=== PATIENT | male | born 1980 | race African-American/Black ===

== ENCOUNTER 2019-04-23 22:58 | Emergency (ER) | payer BC ==
[2019-04-23] MEDS ORDERED: Lidocaine 1% PF 5 ML VIAL ONE (23:35)
[2019-04-23] MEDS ORDERED: cefTRIAXone\\ROCEPHIN 250 MG VIAL ONE (23:35)
[2019-04-23] MEDS ORDERED: Azithromycin 250 MG TAB ONE (23:35)
== END 2019-04-23 23:55 | disposition home or self-care (01) ==
LOC: SCSER 22:58
DX: Z20.2 Contact with and (suspected) exposure to infections with a predominantly sexual mode of transmission (principal)
CPT/HCPCS: 96372; 99283; J0696; J2001

== ENCOUNTER 2024-02-06 07:38 | Emergency (ER) | payer BC, SELFPAY ==
[2024-02-06] MEDS ORDERED: Dexamethasone 10 MG/ML VIAL ONE (07:59)
[2024-02-06] MEDS ORDERED: Ketorolac Tromethamine 30 MG (1 mL) VIAL ONE (07:59)
[2024-02-06] MEDS ORDERED: Metoclopramide HCl 10 MG (2 mL) VIAL ONE (08:00)
[2024-02-06] MEDS ORDERED: fentaNYL 50 mcg/mL 1 mL Vial ONE (08:00)
[2024-02-06] MEDS ORDERED: diphenhydrAMINE 50 MG/ML VIAL ONE (08:00)
[2024-02-06 08:07] LABS: #Basophils 0.03 10x3/uL (0.0-0.2); %Basophils 0.7 % (0.0-1.0); %Eosinophils 1.6 % (0.0-10.0); %Lymphocytes 41.5 % (21.0-51.0); %Monocytes 9.5 % (0.0-10.0); Hematocrit 48.1 % (42.0-52.0); Hemoglobin 15.9 g/dL (14.0-18.0); Mean Corpuscular HGB CONC 33.1 g/dL (32.0-36.0); Mean Corpuscular Hemoglobin 26.2 pg (27.0-31.0); Mean Corpuscular Volume 79.1 fL (78.0-98.0); Mean Platelet Volume 10.2 fL (7.4-10.4); Platelet Count 272 10x3/uL (130-400); RBC Distribution Width 12.6 % (11.5-14.5); Red Blood Cell (RBC) Count 6.08 mill/uL (4.70-6.10)
[2024-02-06 08:25] LABS: ALT (SGPT) 19 U/L (8-55); AST (SGOT) 19 U/L (5-34); Albumin 3.8 g/dL (3.5-5.0); Alkaline Phosphatase 81 U/L (40-110); Anion Gap 15 mmol/L (10-20); BUN (Urea Nitrogen) 17 mg/dL (8.9-20.6); Bilirubin, Total 0.3 mg/dL (0.2-1.2); CK (CPK) 155 U/L (30-200); Calc. Creatinine Clearance 0 mL/min (70-130); Calcium 10.2 mg/dL (7.8-10.44); Carbon Dioxide 21 mmol/L (22-29); Chloride 108 mmol/L (98-107); Estimated GFR 109; Globulin 3.6 g/dL (2.4-3.5); Glucose 102 mg/dL (70-105); Potassium 3.7 mmol/L (3.5-5.1); Protein, Total 7.4 g/dL (6.0-8.3); Sodium 140 mmol/L (136-145)
[2024-02-06 08:26] LABS: Acetaminophen Less than 10 mcg/mL (10.0-30.0); Alcohol Less than 10.0 mg/dL (Less than 10); Salicylate Less than 8.0 mg/dL (15.0-30.0)
== END 2024-02-06 09:56 | disposition home or self-care (01) ==
LOC: ERS 07:38
DX: R51.9 Headache, unspecified (principal); F41.1 Generalized anxiety disorder
CPT/HCPCS: 36415; 70450; 80053; 80307; 82550; 85025; 93005; 96365; 96366; 96375; J1100; J1200; J1885; J2765; J3010

== ENCOUNTER 2025-07-17 14:03 | Emergency (ER) | payer BC ==
[2025-07-17] MEDS ORDERED: Amoxicillin/Potassium Clav 875 MG TAB ONE (16:32)
[2025-07-17] MEDS ORDERED: Boostrix 0.5 ML (Tdap) VIAL (>/=7 yrs of age) ONE (16:33)
== END 2025-07-17 17:00 | disposition home or self-care (01) ==
LOC: ERS 14:03
DX: S61.206A Unspecified open wound of right little finger without damage to nail, initial encounter (principal); W29.0XXA Contact with powered kitchen appliance, initial encounter; Z23 Encounter for immunization
CPT/HCPCS: 90471; 90715; 96372; J2270